=== PATIENT | male | born 1990 | race Caucasian/White ===

== ENCOUNTER 2016-12-08 23:56 | Emergency (ER) | payer OTHER ==
[2016-12-09] MEDS ORDERED: LORAZEPAM 1 MG TABLET PO ONE (01:06)
[2016-12-09 01:09] VITALS: BP 147/87
--- NOTE | 2016-12-09 01:18 | ER Document Report ---
ED General - General Chief Complaint: Dizziness Stated Complaint: CHEST PAIN Notes: Patient is a 26-year-old male without past medical history who presents with multiple complaints. He states that he is having intermittent chest pain and this has been present for "years". States the pain as a sharp, mild pain that lasted roughly 1-2 seconds and then does spontaneously resolved. Denies any associated shortness of breath, nausea, vomiting or diaphoresis. No history of DVT or pulmonary embolus. He denies any pain at the time of my assessment. Patient also notes that he has not slept in 2 days since his girlfriend broke up with him. He is extremely anxious and tremulous on initial evaluation. He is complaining of fullness in his ears, bilateral hand paresthesias, paresthesias around his lips and a feeling of hopelessness. He denies suicidal ideation, plan to harm himself, or homicidal ideation. States that he is planning to stay with his brother who also lives locally. TRAVEL OUTSIDE OF THE [place] IN LAST 30 DAYS: No - Related Data Allergies/Adverse Reactions: No Known Allergies Allergy (Verified 12/09/16 00:37) Past Medical History - General Information source: Patient - Social History Smoking Status: Never Smoker Frequency of alcohol use: None Drug Abuse: None Lives with: Family Family History: Reviewed & Not Pertinent Patient has suicidal ideation: No Patient has homicidal ideation: No Renal/ Medical History: Reports: Hx Peritoneal Dialysis Review of Systems - Review of Systems Notes: Constitutional: Negative for fever. HENT: Negative for sore throat. Eyes: Negative for visual changes. Cardiovascular: Positive for chest pain. Respiratory: Negative for shortness of breath. Gastrointestinal: Negative for abdominal pain, vomiting or diarrhea. Genitourinary: Negative for dysuria. Musculoskeletal: Negative for back pain. Skin: Negative for rash. Neurological: Negative for headaches, weakness or numbness. 10 point ROS negative except as marked above and in HPI. Physical Exam - Vital signs Vitals: Temp Pulse Resp BP Pulse Ox 98.1 F 94 16 147/87 H 100 12/09/16 00:04 12/09/16 00:04 12/09/16 00:04 12/09/16 00:04 12/09/16 00:04 Interpretation: Normal Notes: PHYSICAL EXAMINATION: GENERAL: Well-appearing, well-nourished and in no acute distress. HEAD: Atraumatic, normocephalic. EYES: Pupils equal round and reactive to light, extraocular movements intact, sclera anicteric, conjunctiva are normal. ENT: nares patent, oropharynx clear without exudates. Moist mucous membranes. NECK: Normal range of motion, supple without lymphadenopathy LUNGS: Breath sounds clear to auscultation bilaterally and equal. No wheezes rales or rhonchi. HEART: Regular rate and rhythm without murmurs ABDOMEN: Soft, nontender, normoactive bowel sounds. No guarding, no rebound. No masses appreciated. EXTREMITIES: Normal range of motion, no pitting or edema. No cyanosis. NEUROLOGICAL: No focal neurological deficits. Moves all extremities spontaneously and on command. PSYCH: Appears extremely anxious, tremulous SKIN: Warm, Dry, normal turgor, no rashes or lesions noted. Course - Re-evaluation Re-evalutation: 12/09/16 01:06 Patient presents with multiple vague complaints that did not appear to be concerning for any acute life-threatening pathology. Patient is extremely tremulous, anxious, dark circles around his eye on assessment. He reports multiple complaints that appear most consistent with somatisation as his girlfriend recently broke up with him and kicked him out of the apartment. His symptoms started after that event. He also notes additional social stressors including recent loss of job and being behind on car payments. Vitals are within normal limits at triage and at time of discharge. Physical examination is unremarkable. EKG shows regular tachycardia but is otherwise unremarkable. Patient has tolerated oral intake without difficulty. Patient was not noted to be in distress at any point during their ER visit. At this time, based on the reassuring evaluation, I do not suspect an acute LA, pulmonary embolus, aortic dissection, acute intra-abdominal pathology, stroke, or sepsis.Will discharge with return precautions and follow-up recommendations. Verbal discharge instructions given a the bedside and opportunity for questions given. Medication warnings reviewed. Patient is in agreement with this plan and has verbalized understanding of return precautions and the need for primary care follow-up in the next 24-72 hours. - Vital Signs Vital signs: Temp Pulse Resp BP Pulse Ox 98.1 F 94 16 147/87 H 100 12/09/16 00:04 12/09/16 00:04 12/09/16 00:04 12/09/16 00:04 12/09/16 00:04 - EKG Interpretation by Me Additional EKG results interpreted by me: 12/09/16 02:29 Normal sinus rhythm. Rate 80. No ST elevation or depression. QTC is 457. Discharge - Discharge Clinical Impression: Chest discomfort, Anxiety Condition: Stable Disposition: HOME, SELF-CARE Additional Instructions: Many of your symptoms are likely related to the current stress in your life. Please see a primary care doctor regarding management of your long-term health concerns. Your EKG here today is normal. Please go home and sleep today. You can return to work on Friday.At this time will discharge with return precautions and follow-up recommendations. Verbal discharge instructions given a the bedside and opportunity for questions given. Medication warnings reviewed. Patient is in agreement with this plan and has verbalized understanding of return precautions and the need for primary care follow-up in the next 24-72 hours. Forms: Return to Work
[2016-12-09] MEDS ORDERED: ACETAMINOPHEN 325 MG TABLET ONE ×2 (01:32→01:33)
[2016-12-09] MEDS ORDERED: ACETAMINOPHEN 325 MG TABLET PO ONE (01:45)
--- NOTE | 2016-12-09 10:39 | EKG REPORT ---
SEVERITY:- NORMAL ECG - SINUS RHYTHM : Confirmed by: Guy Nixon 09-Dec-2016 10:39:19
== END 2016-12-09 01:44 | disposition home or self-care (01) ==
LOC: ER 23:56
DX: R07.9 Chest pain, unspecified (principal); F41.9 Anxiety disorder, unspecified; R42 Dizziness and giddiness
CPT/HCPCS: 93005; 93010; 99284

== ENCOUNTER 2016-12-10 06:01 | Emergency (ER) | payer OTHER ==
[2016-12-10] MEDS ORDERED: ASPIRIN 81 MG TABLET, CHEWABLE PO ONE (07:35)
[2016-12-10 08:21] LABS: ABSOLUTE EOSINOPHILS # (AUTO) 0.2 10^3/uL (0.0-0.6); ABSOLUTE LYMPHOCYTES (AUTO) 1.6 10^3/uL (0.5-4.7); ABSOLUTE MONOCYTES (AUTO) 0.6 10^3/uL (0.1-1.4); ABSOLUTE NEUT (AUTO) 5.2 10^3/uL (1.7-8.2); BASOPHILS % (AUTO) 0.5 % (0-2); EOSINOPHILS % (AUTO) 2.5 % (0-6); HEMATOCRIT 41.1 % (37.9-51.0); HEMOGLOBIN 14.1 g/dL (13.5-17.0); HGB HCT DIFFERENCE 1.2; LYMPHOCYTES % (AUTO) 20.8 % (13-45); MEAN CORPUSCULAR HEMOGLOBIN 29.7 pg (27.0-33.4); MEAN CORPUSCULAR HGB CONC 34.4 g/dL (32.0-36.0); MEAN CORPUSCULAR VOLUME 86 fl (80-97); MONOCYTES % (AUTO) 7.3 % (3-13); RED BLOOD COUNT 4.75 10^6/uL (4.35-5.55); RED CELL DISTRIBUTION WIDTH 12.9 % (11.5-14.0); SEGMENTED NEUTROPHILS % (AUTO) 68.9 % (42-78); WHITE BLOOD COUNT 7.5 10^3/uL (4.0-10.5)
[2016-12-10 08:42] LABS: ALANINE AMINOTRANSFERASE 73 U/L (21-72); ALBUMIN 4.5 g/dL (3.5-5.0); ALKALINE PHOSPHATASE 85 U/L (38-126); ANION GAP 14 (5-19); ASPARTATE AMINO TRANSFERASE 38 U/L (17-59); BILIRUBIN,DIRECT 0.3 mg/dL (0.0-0.4); BILIRUBIN,TOTAL 0.9 mg/dL (0.2-1.3); BLOOD UREA NITROGEN 15 mg/dL (7-20); CALCIUM 9.9 mg/dL (8.4-10.2); CARBON DIOXIDE 23 mmol/L (22-30); CHLORIDE 107 mmol/L (98-107); CREATINE KINASE 246 U/L (55-170); CREATININE RESULT 0.89 mg/dL (0.52-1.25); GLUCOSE 92 mg/dL (75-110); POTASSIUM 4.4 mmol/L (3.6-5.0); SODIUM 143.9 mmol/L (137-145); TOTAL PROTEIN 7.7 g/dL (6.3-8.2)
[2016-12-10 09:03] LABS: CREATINE KINASE MB 3.12 ng/mL (<4.55)
[2016-12-10 09:04] LABS: TROPONIN I < 0.012 ng/mL
[2016-12-10 09:05] LABS: AMORPHOUS SEDIMENT,URINE TRACE /HPF; APPEARANCE,URINE SLIGHTLY-CLOUDY; BILIRUBIN,URINE NEGATIVE (NEGATIVE); GLUCOSE, URINE NEGATIVE (NEGATIVE); KETONES,URINE 20 mg/dL (NEGATIVE); LEUKOCYTE ESTERASE,URINE NEGATIVE (NEGATIVE); NITRITE,URINE NEGATIVE (NEGATIVE); PROTEIN,URINE 30 mg/dL (NEGATIVE); URINE SPECIFIC GRAVITY 1.035; UROBILINOGEN,URINE NEGATIVE mg/dL (<2.0)
[2016-12-10 09:21] LABS: URINE BARBITURATES SCREEN NEGATIVE; URINE METHADONE SCREEN NEGATIVE; URINE OPIATES LOW NEGATIVE; URINE PHENCYCLIDINE SCREEN NEGATIVE
--- NOTE | 2016-12-10 09:38 | ER Document Report ---
ED General - General Chief Complaint: Chest Pain Stated Complaint: CHEST DISCOMFORT Mode of Arrival: Ambulatory Information source: Patient Notes: Patient presents emergency department today with complaints of left-sided sharp chest pain that lasted a few seconds this morning. He reports he has history of heart murmur when he was younger. He also reports that he had the same sharp chest pain when he was 6 years old. He reports some nausea with this chest pain. Patient reports he does smoke pot and recently took some Adderall from a friend, just because, no reason. He denies trauma. He denies other symptoms such as fever and diarrhea, shortness of breath. Patient denies chest pain at this time. Patient was evaluated for the same symptoms of yesterday. TRAVEL OUTSIDE OF THE [place] IN LAST 30 DAYS: No - HPI Onset: This morning Onset/Duration: Sudden Quality of pain: Sharp Associated symptoms: Nausea Exacerbated by: Denies Relieved by: Denies Similar symptoms previously: Yes Recently seen / treated by doctor: Yes - Related Data Allergies/Adverse Reactions: No Known Allergies Allergy (Verified 12/10/16 06:05) Past Medical History - General Information source: Patient - Social History Smoking Status: Unknown if Ever Smoked Cigarette use (# per day): No Chew tobacco use (# tins/day): No Frequency of alcohol use: None Drug Abuse: Marijuana Occupation: [employer] Family History: Reviewed & Not Pertinent Patient has suicidal ideation: No Patient has homicidal ideation: No - Past Medical History Cardiac Medical History: Reports: Hx Heart Murmur Renal/ Medical History: Denies: Hx Peritoneal Dialysis Surgical Hx: Negative Review of Systems - Review of Systems Notes: Review HPI for review of systems., All other systems negative Physical Exam - Vital signs Vitals: Temp Pulse Resp BP Pulse Ox 98.1 F 101 H 20 122/86 H 100 12/10/16 06:12 12/10/16 06:12 12/10/16 06:12 12/10/16 06:12 12/10/16 06:12 - Notes Notes: PHYSICAL EXAMINATION: GENERAL: Well-appearing and in no acute distress HEAD: Atraumatic, normocephalic. EYES: Pupils equal round and reactive to light, extraocular movements intact, sclera anicteric, conjunctiva are normal. ENT: nares patent, oropharynx clear without exudates. Moist mucous membranes. NECK: Normal range of motion, supple without lymphadenopathy LUNGS: CTAB and equal. No wheezes rales or rhonchi. HEART: Regular rate and rhythm without murmurs ABDOMEN: Soft, no tenderness. No guarding, no rebound EXTREMITIES: Normal range of motion, no pitting edema. No cyanosis. NEUROLOGICAL: Cranial nerves grossly intact. Normal sensory/motor exams. PSYCH: Normal mood, normal affect. SKIN: Warm, Dry, normal turgor, no rashes or lesions noted Course - Re-evaluation Re-evalutation: 12/10/16 09:50 Negative troponin and CK elevated. Other labs unremarkable. Patient admits to taking someone else's Adderall. He reports he just did a final. Patient was cautioned on the dangers of taking other patients medications. Patient reports he had one week episode of sharp chest pain this morning and it went away. He reports it lasted for maybe one second. He denies other symptoms such as shortness of breath fever vomiting he reports it did make him feel slightly nauseated. Patient was instructed on second set of cardiac enzymes and reason why, he declined reports he wants to leave. He was instructed on possible damage to his heart, possible heart attack, risk of . He reports he will fu with a pcp next week. The patient has decided not to proceed with further recommended testing or treatment to determine the cause of their symptoms. The risks and alternatives to the recommendations were discussed and the patient was understanding. The patient appears clinically to have the capacity to make this decision. Patient was instructed that he/she could return to the emergency department at any time to complete the testing treatment. - Vital Signs Vital signs: Temp Pulse Resp BP Pulse Ox 98.1 F 101 H 17 117/63 100 12/10/16 06:12 12/10/16 06:12 12/10/16 09:00 12/10/16 09:00 12/10/16 09:00 - Laboratory Result Diagrams: 12/10/16 07:55 12/10/16 07:55 Laboratory results interpreted by me: 12/10/16 12/10/16 07:55 08:40 ALT 73 H Creatine Kinase 246 H Urine Protein 30 H Urine Ketones 20 H - Diagnostic Test Radiology reviewed: Image reviewed, Reports reviewed - Diagnostic report text EXAM DESCRIPTION: CHEST SINGLE VIEW/ portable COMPLETED DATE/TIME: 2016 8:02 am REASON FOR STUDY: Chest Pain COMPARISON: None. NUMBER OF VIEWS: One view. TECHNIQUE: Single frontal radiographic view of the chest acquired. LIMITATIONS: None. FINDINGS: LUNGS AND PLEURA: No opacities, masses or pneumothorax. No pleural effusion. MEDIASTINUM AND HILAR STRUCTURES: No masses. Contour normal. HEART AND VASCULAR STRUCTURES: Heart normal in size. Normal vasculature. BONES: No acute findings. HARDWARE: None in the chest. OTHER: No other significant finding. TECHNICAL DOCUMENTATION: JOB ID: [id number]- All Rights Reserved RAD/CHEST SINGLE VIEW IMPRESSION: NO SIGNIFICANT RADIOGRAPHIC FINDING IN THE CHEST Discharge - Discharge Clinical Impression: Chest pain Qualifiers: Chest pain type: unspecified Qualified Code(s): R07.9 - Chest pain, unspecified Condition: Stable Disposition: AGAINST MEDICAL ADVICE Instructions: Aspirin (Cardiac) ([facility]), Chest Pain of Unclear Cause ([facility]) Additional Instructions: *You have been evaluated for chest pain *Only take medication that is prescribed to you. *Follow up with a primary care provider within one week for recheck *Return to ED for worsening condition, changes, needs, chest pain returns, trouble breathing, concerns Forms: Return to Work
[2016-12-10 10:04] VITALS: BP 136/74
--- NOTE | 2016-12-10 11:13 | EKG REPORT ---
SEVERITY:- ABNORMAL ECG - SINUS RHYTHM PROBABLE LEFT ATRIAL ABNORMALITY LATERAL Q WAVES, PROBABLY NORMAL VARIATION NONSPECIFIC T ABNORMALITIES, ANT-LAT LEADS : Confirmed by: Guy Nixon 10-Dec-2016 11:12:22
== END 2016-12-10 10:04 | disposition left against medical advice (07) ==
LOC: ER 06:01
DX: R07.9 Chest pain, unspecified (principal); R11.0 Nausea; Z86.79 Personal history of other diseases of the circulatory system; Z53.20 Procedure and treatment not carried out because of patient's decision for unspecified reasons
CPT/HCPCS: 36415; 71010; 80053; 80307; 81001; 82550; 82553; 84484; 85025; 93005; 93010; 99285